=== PATIENT | male | born 1990 | race Native Hawaiian/Other Pacific Islander ===

== ENCOUNTER 2017-06-19 17:10 | Emergency (ER) | payer OTHER ==
[~2017-06-19] VITALS: Ht 182.9 cm; Wt 108.9 kg
== END 2017-06-19 17:40 | disposition home or self-care (01) ==
LOC: ED 17:10
DX: R23.4 Changes in skin texture (principal)
CPT/HCPCS: 99282

== ENCOUNTER 2021-01-24 22:27 | Emergency (ER) | payer BC ==
[~2021-01-24] VITALS: Ht 185.4 cm; Wt 104.3 kg
[2021-01-25 02:00] VITALS: BP 122/68; TEMP 97.9
== END 2021-01-25 02:00 | disposition home or self-care (01) ==
LOC: ED 22:27
DX: R31.9 Hematuria, unspecified (principal)
CPT/HCPCS: 81000; 99283

== ENCOUNTER 2022-06-28 22:49 | Emergency (ER) | payer OTHER ==
[~2022-06-28] VITALS: Ht 185.4 cm; Wt 113.4 kg
[2022-06-29 00:29] VITALS: BP 110/61; TEMP 98.6
== END 2022-06-29 00:29 | disposition home or self-care (01) ==
LOC: ED 22:49
DX: S61.431A Puncture wound without foreign body of right hand, initial encounter (principal); W54.0XXA Bitten by dog, initial encounter; Y92.89 Other specified places as the place of occurrence of the external cause
CPT/HCPCS: 96372; 99283; J0696